=== PATIENT | female | born 1965 | race Caucasian/White ===

== ENCOUNTER 2025-01-23 08:19 | Day surgery (SDC) | payer BC ==
[~2025-01-23] VITALS: Ht 157.5 cm; Wt 53.5 kg
[2025-01-23] MEDS: LIDOCAINE 1% SDV 5 ML VIAL As Ordered ONE (06:44)
[~2025-01-23 08:19] MED LIST: B COCAP4 PO; MIDAZOLAM INJ 2 MG/2 ML VIAL As Ordered ONE; OMEGCAP9 PO; PHENYLEPHRINE 10% OPHTH SOL 5ML OS PRN; PRES10CA2 PO; PRES1CHW PO; ST JOHNS WART; VITA100093 PO
[2025-01-23] MEDS: CYCLOPENTOLATE 1% OPHTH SOLN 2 ML BTL OS SCH (10:38)
[2025-01-23] MEDS: OFLOXACIN 0.3 % (OCUFLOX) OPTH SOL 5ML OS ONE (10:38)
[2025-01-23] MEDS: LIDOCAINE 3.5% 1 ML OPHTH TOPICAL GEL OU ONE (10:38)
[2025-01-23] MEDS: TROPICAMIDE 1% OPHTH SOLN 15ML OS SCH (10:38)
[2025-01-23] MEDS: PHENYLEPHRINE 2.5% OPHTH SOL 2ML OS SCH (10:38)
[2025-01-23] MEDS: BSS IRRIG/VANCO(10MG)/TOBRA(5MG)/EPINEPH(1:1000-0.5CC)500ML BAG-ORONLY As Ordered ONE (11:07)
[2025-01-23] MEDS: CEFUROXIME 1 MG/0.1 ML INTRACAMERAL INJ As Ordered ONE (11:07)
[2025-01-23 11:21] VITALS: BP 102/57; TEMP 97.1; O2SAT 96
== END 2025-01-23 11:40 | disposition home or self-care (01) ==
LOC: M SDC 08:19
PROVIDERS: ATTEND Ophthalmology
DX: H25.12 Age-related nuclear cataract, left eye (principal); I34.1 Nonrheumatic mitral (valve) prolapse; Z90.89 Acquired absence of other organs; Q63.1 Lobulated, fused and horseshoe kidney
CPT/HCPCS: 66984; 92015; J0697; J2250; J3010; V2632

== ENCOUNTER 2025-01-30 08:14 | Day surgery (SDC) | payer BC ==
[~2025-01-30] VITALS: Ht 157.5 cm; Wt 54.4 kg
[~2025-01-30 08:14] MED LIST changes: +PHENYLEPHRINE 10% OPHTH SOL 5ML OD PRN; -PHENYLEPHRINE 10% OPHTH SOL 5ML OS PRN
[2025-01-30] MEDS: CYCLOPENTOLATE 1% OPHTH SOLN 2 ML BTL OD SCH (09:27)
[2025-01-30] MEDS: OFLOXACIN 0.3 % (OCUFLOX) OPTH SOL 5ML OD ONE (09:27)
[2025-01-30] MEDS: LIDOCAINE 3.5% 1 ML OPHTH TOPICAL GEL OU ONE (09:27)
[2025-01-30] MEDS: PHENYLEPHRINE 2.5% OPHTH SOL 2ML OD SCH (09:27)
[2025-01-30] MEDS: TROPICAMIDE 1% OPHTH SOLN 15ML OD SCH (09:28)
[2025-01-30] MEDS: BSS IRRIG/VANCO(10MG)/TOBRA(5MG)/EPINEPH(1:1000-0.5CC)500ML BAG-ORONLY As Ordered ONE (10:20)
[2025-01-30] MEDS: LIDOCAINE 1% SDV 5 ML VIAL As Ordered ONE (10:20)
[2025-01-30] MEDS: CEFUROXIME 1 MG/0.1 ML INTRACAMERAL INJ As Ordered ONE (10:20)
[2025-01-30 10:33] VITALS: BP 98/60; TEMP 96.8; O2SAT 96
== END 2025-01-30 10:55 | disposition home or self-care (01) ==
LOC: M SDC 08:14
PROVIDERS: ATTEND Ophthalmology
DX: H25.11 Age-related nuclear cataract, right eye (principal); Z98.42 Cataract extraction status, left eye; Z96.1 Presence of intraocular lens
CPT/HCPCS: 66984; 92015; J0697; J2250; J3010; V2788